=== PATIENT | female | born 1995 | race African-American/Black ===

== ENCOUNTER 2022-04-29 21:10 | Emergency (ER) | payer MEDICAID, OTHER ==
[~2022-04-29] VITALS: Ht 160 cm; Wt 76.4 kg
[2022-04-29] MEDS ORDERED: LIDOCAINE 1% 10 ML VIAL SQ ONE (22:30)
[2022-04-29] MEDS ORDERED: LORazepam 1 MG TABLET PO ONE (22:45)
[2022-04-29] MEDS ORDERED: CEPHALEXIN MONOHYDRATE 500 MG CAPSULE PO ONE (23:00)
[2022-04-29] MEDS ORDERED: PERTUSS(ACELL),DIPH,TET VAC/PF 0.5 ML SYRINGE IM. ONE (23:00)
[2022-04-29] MEDS ORDERED: CEPH-558 PO (23:01)
[2022-04-29 23:18] VITALS: BP 136/85
== END 2022-04-29 23:26 | disposition home or self-care (01) ==
LOC: EMS 21:13
DX: S81.811A Laceration without foreign body, right lower leg, initial encounter (principal); F12.90 Cannabis use, unspecified, uncomplicated; F11.90 Opioid use, unspecified, uncomplicated; Z87.448 Personal history of other diseases of urinary system; Z91.010 Allergy to peanuts; Z91.018 Allergy to other foods; X58.XXXA Exposure to other specified factors, initial encounter; Y93.89 Activity, other specified; Y92.89 Other specified places as the place of occurrence of the external cause; Y99.8 Other external cause status
CPT/HCPCS: 12005; 73590; 90471; 90715; 99283; J3490